=== PATIENT | female | born 1960 | race Caucasian/White ===

== ENCOUNTER 2016-09-17 18:56 | Inpatient (IN) | payer BC ==
[~2016-09-17] VITALS: Ht 170.2 cm; Wt 80.8 kg
--- NOTE | ~2016-09-17 | ECHO ---
Transthoracic Echocardiography Report (TTE) Demographics Patient Name TITO MOORE Date of Study 09/18/2016 Patient Number [id number] Visit Number [id number] Date of 1960 Room Number G6305 Accession Number [id number] Gender Female Age 55 year(s) Referring Guevara Sharma V Pediatric Oncology Nurse Billy Cunningham Physician RVT Physician Interpreting Yenny Corea MD Milk Route Deliverer Physician Supervising Ordering Physician Yenny Corea MD, MD/MLP Nurse Stress Pet Care Technician Conclusions Contractility Score Summary Normal Left Ventricular contractility was noted. Summary The estimated left ventricular ejection fraction is 60-65%. Mild concentric left ventricular hypertrophy. Mild mitral regurgitation by color Doppler. The aortic valve is mildly sclerotic. There is mild aortic regurgitation by color Doppler. Mild tricuspid regurgitation by color Doppler. There is moderate pulmonary hypertension. The pulmonary pressure (RVSP) is 45 mmHg. Possible trivial pericardial effusion. Procedure Type of Study TTE procedure:2D Echocardiogram. Procedure Date Date: 09/18/2016 Start: 08:39 AM Study Location: Inpatient Portable Technical Quality: Adequate visualization Indications:Chest pain. Appropriate Use Criteria: 9 Patient Status: Routine HR: 59 bpm BP: 156/80 mmHg Allergies - No known allergies. M-Mode/2D Measurements LV Diastolic Dimension: 4.34 cm LV Systolic Dimension: 2.9 cm LV Septum Diastolic: 1.52 cm LV PW Diastolic: 1.25 cm AO Root Dimension: 2.56 cm Cardiac Output: 3.55 l/min AV Cusp Separation: 1.9 cm RV Diastolic Dimension: 2.62 cm LVOT: 2.04 cm LVOT VTI: 18.4 cm RV Base: 2.44 cm LV Stroke volume: 60.11 ml RV Length: 5.95 cm TAPSE: 2.6 cm TDI-S': 13.5 cm/s Doppler Measurements AV Peak Velocity: 1.41 m/s MV Peak E-Wave: 0.91 m/s AV Peak Gradient: 7.95 mmHg MV Peak A-Wave: 0.53 m/s AV Mean Gradient: 4 mmHg MV E/A Ratio: 1.72 LVOT Peak Velocity: 0.84 m/s MV P1/2t: 57 msec AV P1/2t: 428 msec TR Gradient:35.05 mmHg PV Peak Velocity: 0.59 m/s Estimated RAP:10 mmHg PV Peak Gradient: 1.38 mmHg Estimated RVSP: 45 mmHg Estimated PASP: 45.05 mmHg E' Septal Velocity: 0.08 m/s A' Septal Velocity: 0.11 m/s E' Lateral Velocity: 0.1 m/s A' Lateral Velocity: 0.09 m/s Findings Left Ventricle Mild concentric left ventricular hypertrophy. Right Ventricle Normal right ventricle structure and function. Left Atrium Normal left atrial size. Right Atrium IVC measures 1.37 cm with inspiratory collapse. Mitral Valve Mild mitral regurgitation by color Doppler. Aortic Valve The aortic valve is mildly sclerotic. There is mild aortic regurgitation by color Doppler. Tricuspid Valve Mild tricuspid regurgitation by color Doppler. There is moderate pulmonary hypertension. The pulmonary pressure (RVSP) is 45 mmHg. Pulmonic Valve Normal pulmonic valve structure and function. Pericardial Effusion Possible trivial pericardial effusion. Miscellaneous Visualized portions of the aortic root and ascending aorta appear normal in size. Pleural Effusion No evidence of pleural effusion. Contractility Score LV regional wall motion:(0-Non visualized 1-Normal 2-Hypokinesis 3-Akinesis 4-Dyskinesis 5-Aneurysm) Signature dtt: Anmol Ramon (cardio) dtd: 09/18/16 0839 Physician Self Edit
--- NOTE | ~2016-09-17 | CATH ---
Cardiac Diagnostic Report Demographics Patient Name TERESA Lopez Gender Female Date of 1960 Age 55 year(s) Patient Number [id number] Date of Study 09/18/2016 Visit Number [id number] Room Number G6305 [place] [id number] Ht 170.18 cm Wt 80.1 kg Referring Primary Physician Physician Performing Yenny Corea MD Secondary Physician Physician Diagnostic Yenny Corea MD Assisting Physician Physician Interventional Physician Leather Worker Physician Findings and Conclusions Diagnostic Findings and Conclusion nonobstructive CAD Normal LV Function Diagnostic Recommendations Medical therapy Evaluation for noncardiac causes of chest pain Procedure Description The patient was brought to the diagnostic cardiac catheterization-EP laboratory in the fasting, non-sedated state. Informed consent was obtained in the written and verbal form after the risks and benefits were explained. The patient had no further questions and agreed to proceed. The planned puncture-incision site(s) were shaved and prepped with ChloraPrep and draped in the usual sterile manner. Conscious sedation, supplemental oxygen, and pain control medications were delivered by a registered nurse under physician guidance. Surface ECG rhythm, blood pressure measurement, and pulse oximetry were monitored throughout the procedure. Arterial access. The access site was infiltrated with lidocaine. The vessel was entered with the Seldinger technique. A sheath was advanced into the vessel and used for catheter placement. Selective left coronary angiography. A catheter was advanced into the left coronary vessel ostium under Fluoroscopic guidance. Contrast was injected by hand. Images were obtained in multiple projections. Selective right coronary angiography. A catheter was advanced into the right coronary vessel ostium under fluoroscopic guidance. Contrast was injected by hand. Images were obtained in multiple projections. Left heart catheterization with ventriculography. A catheter was advanced across the aortic valve to the left ventricle under fluoroscopic guidance. Resting hemodynamics were obtained. With the catheter at the left ventricular apex, contrast was injected. Images were obtained in [place] projections. Post-ventriculography LV pressure was obtained. The catheter was gradually withdrawn into the aorta with continuous pressure recording. Arterial artery hemostasis was achieved. The patient was transferred to a regular nursing floor via cart accompanied by a nurse. The patient left the laboratory in stable condition. Diagnostic Cath Status: Urgent Procedure Procedure Type Diagnostic procedure:Ventriculogram:, Left, Angiography:, Coronary Angios w/[facility] Indications: Chest pain. The procedure was explained in detail to the patient. Risks, complications and alternative treatments were reviewed. Written consent was obtained. Medications Reviewed with Patient prior to Procedure. Angiographic Findings Dominance: Right Cardiac Arteries and Lesion Findings LMCA: Large Normal LAD: Medium Normal Diag 1 Medium normal LCx: Nondominant Normal Om 1 Small RCA: Large normal PL medium normal PDA Medium normal Ramus: Large Normal Procedure Data Procedure Date Date: 09/18/2016Start: 12:35 PMEnd: 01:00 PM Entry Locations - Retrograde Percutaneous access was performed through the Right Femoral artery (Primary location). A 6 Fr sheath was inserted. Hemostasis was successfully obtained using Perclose ProGlide ([employer]). Closure Comments: Deployed by Shashank . Procedure Medications Order and Administration + + +-------+------+ !Time !Medication !Dosage !Route ! + + +-------+------09/18/2016 12:26 PM !Fentanyl !50 mcg !I.V. ! + + +-------+------09/18/2016 12:32 PM !Versed !1 mg !I.V. ! + + +-------+------09/18/2016 12:36 PM !Versed !1 mg !I.V. ! + + +-------+------+ Devices Used - A6 Fr. BS JL 4 Diag. Catheterwas used for:Left coronary angiography. - A6 Fr. BS JR 4 Diag. Catheterwas used for:Right coronary angiography. - A6 Fr. BS Angled Pigtail Diag. Catheterwas used for:LV Pressures. Contrast Material - Isovue 77291 ml Fluoroscopy Time: Diagnostic: 2:42 minutes. Total: 2:42 minutes. Fluoroscopy Dose: Diagnostic: 776 mGy. Total: 776 mGy. Estimated Blood Loss: 10 ml. Medical History Allergies - No known allergies. Risk Factors The patient risk factors include:hypertension, family history of premature CAD, last creatinine: 0.6 mg/dl, creatinine clearance: 133.96 ml/min and former tobacco use. Admission Data Admission Date: 09/17/2016 Admission Time: 09:34 PM Admit Source: Emergency department Insurance Payors: Private health insurance. Admission Medications + +------+------+ + + + + !Medication !Dosage!Times !Last !Last !Administered !Comments ! ! ! !Per !Delivery !Delivery ! ! ! ! ! !Day !Date !Time ! ! ! + +------+------+ + + + + !Beta ! ! ! ! !Yes ! ! !Jh ! ! ! ! ! ! ! !(any) ! ! ! ! ! ! ! + +------+------+ + + + + Clinical Evaluation Leading to Procedure - The patient's CAD presentation was assessed as: Stable angina. - The patient's anginal syndrome during the past two weeks was assessed as: Class IV according to the [place] Cardiovascular [employer] Classification System (CCS). Anti-anginal medications were prescribed during the past two weeks. The medication is: Beta Blockers. VA LV function assessed as:Normal. Ejection Fraction - Method: LV gram. EF%: 65. Hemodynamics Condition: Rest O2 Consumption: Estimated: 201.77Heart Rate: 93 bpm Pressures (mmHg) +-----+ + !Site !Pressure ! +-----+ + !AO !129/67 (91) ! +-----+ + !LV !135/3 ,16 ! +-----+ + !LV !133/1 ,15 ! +-----+ + !LV !130/3 ,16 ! +-----+ + !LV !132/3 ,16 ! +-----+ + !AO !133/66 (96) ! +-----+ + !LV !132/2 ,15 ! +-----+ + Valve Gradients and Areas + +---------+---------+---------+ +---------+ + !Valve !Peak !Mean !Area !Index !Flow !Source ! + +---------+---------+---------+ +---------+ + !Aortic !0 !0 ! ! ! ! ! + +---------+---------+---------+ +---------+ + !Aortic !0 !0 ! ! ! ! ! + +---------+---------+---------+ +---------+ + Shunts Oxygen Values O2 Capacity 201.28 O2 Consumption 201.77 Discharge Data Discharge Date: 09/20/2016 Hospital Status: Inpatient Signatures dtt: Anmol Ramon (cardio) dtd: 09/18/16 1235 Physician Self Edit
--- NOTE | ~2016-09-17 | OR ---
PATIENT'S NAME: TITO MOORE [facility] AGE: 55 Y [address] ROOM: [address] [address] LOCATION: GPCU ADMIT DATE: 09/17/2016 OR/Procedure Report DISCHARGE DATE: FAMILY PHYSICIAN: PHYSICIAN, UNKNOWN ATTENDING PHYSICIAN: GRISELDA DON V SURGEON: Efrain Ayers MD MEDICAL ASSISTANT PER DIEM: Lb Larson PA-C DATE OF PROCEDURE: 09/19/2016 PREOPERATIVE DIAGNOSIS: Cholelithiasis with cholecystitis. POSTOPERATIVE DIAGNOSIS: Cholelithiasis with acute cholecystitis. PROCEDURE PERFORMED: Laparoscopic cholecystectomy. ANESTHESIA: General endotracheal. ESTIMATED BLOOD LOSS: Less than 10 mL. SPECIMENS: Gallbladder and stones. REASON FOR PROCEDURE: The patient is a 55-year-old female, who was recently admitted for midepigastric pain. An ultrasound showed cholelithiasis with evidence of cholecystitis. Her common bile duct was normal in size, and her liver function tests were normal. She elected to proceed with cholecystectomy. FINDINGS: The patient had a markedly distended gallbladder with considerable gallbladder wall thickening and pericholecystic edema. PROCEDURE IN DETAIL: The patient was taken to the operating suite and placed in the supine position. After general endotracheal anesthesia was obtained, the abdomen was prepped with ChloraPrep and sterilely draped. Marcaine was infiltrated into the incision sites. A 2-cm transverse infraumbilical incision was made. The fascia was grasped and elevated, and a Veress needle was used to obtain a pneumoperitoneum. An 11-mm trocar was then passed across the abdominal wall. Three 5-mm subcostal trocars were all placed under direct visualization. The gallbladder was noted to be quite tense and markedly distended. We were unable to grasp it initially. We aspirated a 60 mL syringe of a fairly clear thick fluid from the gallbladder consistent with an obstructed cystic duct. We were then able to grasp the fundus and elevated. A second grasper was placed on the infundibulum. We then began the dissection along the gallbladder wall. The gallbladder wall was quite thickened and inflamed. We were able to expose the cystic artery and staple and divide this without difficulty. We then skeletonized the cystic duct. It was just PATIENT'S NAME: TITO MOORE [facility] AGE: 55 Y [address] ROOM: [address] [place], [place] [address] [facility] ADMIT DATE: 09/17/2016 OR/Procedure Report DISCHARGE DATE: FAMILY PHYSICIAN: PHYSICIAN, UNKNOWN ATTENDING PHYSICIAN: GRISELDA DON V slightly enlarged, but the clips did fit across it if just barely. The cystic duct was stapled multiple times proximally and once distally. The cystic duct was then divided. The gallbladder was then mobilized free of the liver bed using cautery. Once fully mobilized, the gallbladder was placed in an endo retrieval bag and brought out through the umbilicus. We did have to extend the skin incision at the umbilicus as well as stretch the fascial opening significantly to allow removal of this markedly inflamed gallbladder. Right upper quadrant was unremarkable. The pneumoperitoneum was evacuated. The trocars were withdrawn. The fascia at the umbilicus was closed with a figure- of-eight Vicryl suture. The skin incisions were closed with subcuticular Monocryl. Benzoin, Steri-Strips, and gauze dressings were applied. POST-PROCEDURE PLAN: The patient was sent to recovery and back to the floor. We will advance her diet as tolerated. She will receive pain medicines as necessary. MD ELIO GRAY/yaakovl /[id number] d: 09/19/16 1842 t: 09/28/16 0944, OPERATIVE SUMMARY
--- NOTE | ~2016-09-17 | DS ---
PATIENT'S NAME: TITO CONNELL [facility] AGE: 55 Y [address] ROOM: [place] [address] LOCATION: GPCU ADMIT DATE: 09/17/2016 Discharge Summary DISCHARGE DATE: 09/20/2016 FAMILY PHYSICIAN: Physician, Unknown ATTENDING PHYSICIAN: Zachary Waterman V PRINCIPAL DISCHARGE DIAGNOSIS: Acute cholecystitis with cholelithiasis. SECONDARY DIAGNOSES: 1. Abdominal pain with nausea and vomiting. 2. Moderate pulmonary hypertension. CONSULTATIONS: 1. Cardiology, Dr. Ramon. 2. Gastroenterology, Dr. Glenn Hay. 3. General Surgery, Dr. Ayers. PROCEDURES: 1. Cardiac catheterization on 09/18/2016, this was negative. 2. Echocardiogram on 04/21/2016, showed estimated left ventricular ejection fraction 60 to 65%, mild concentric left ventricular hypertrophy, mild mitral regurgitation, moderate pulmonary hypertension, right ventricular systolic pressure is 45 mmHg. 3. Laparoscopic cholecystectomy on 09/19. RADIOGRAPH STUDIES: Ultrasounds showed cholelithiasis with gallbladder wall thickening and surrounding fluid. BRIEF HISTORY: Ms Connell is a 55-year-old female who developed acute pain with severe nausea which lasted more than 12 hours prior to her presentation to the emergency room. This was after eating tacos. She was found to have acute cholecystitis with cholelithiasis. The patient was somewhat complicated by troponin elevation and the maximum around was 0.26. As a result, she had an echocardiogram and was evaluated by Yenny. She was taken to candlemaking laborer with no significant coronary artery disease is noted. She was taken for laparoscopic cholecystectomy yesterday morning and did very well. Postoperatively, she was able to eat yesterday evening. Today, she has been passing gas, had a bowel movement and feels very well, she is ready to go home. Because of the appearance of the gallbladder intraoperatively, it was felt that she needed to stay on IV antibiotics until today. Her Zosyn was discontinued this morning. She is afebrile, temperature currently 98.6, pulse 77, respirations 16. The patient agrees with plan to discharge to home. PATIENT'S NAME: TITO CONNELL [facility] AGE: 55 Y [address] ROOM: [place] [address] LOCATION: GPCU ADMIT DATE: 09/17/2016 Discharge Summary DISCHARGE DATE: 09/20/2016 FAMILY PHYSICIAN: Physician, Unknown ATTENDING PHYSICIAN: Zachary Waterman V INSTRUCTIONS AT DISCHARGE: Recommending a low-fat diet, but no particular restrictions. Activity as tolerated. Follow up with Dr. Ayers in 1-2 weeks. I am going to also recommend that she see a mechanical systems engineer due to the diagnosis of pulmonary hypertension on the echo. She has established care with a PCP within the next week or so. MEDICATIONS AT THE TIME OF DISCHARGE: [place] 5/325 as needed. However I think that she could control her pain which is negligible at this point with NSAIDs. CONDITION ON DISCHARGE: Excellent. She has been seen by the surgeons and given ronald ascencio discharge instruction. Less than 30 minutes was spent. VITOR JONES MD LM/camilla /[id number] d: 09/21/16 1200 t: 09/25/16 1224, DISCHARGE SUMMARY
--- NOTE | ~2016-09-17 | ER ---
PATIENT'S NAME: TITO MOORE [facility] AGE: 55 Y [address] ROOM: [place] [address] LOCATION: GPCU ADMIT DATE: 09/17/2016 ER/Outpatient Report DISCHARGE DATE: FAMILY PHYSICIAN: PHYSICIAN, UNKNOWN ATTENDING PHYSICIAN: GRISELDA DON V CHIEF COMPLAINT: Nausea, vomiting, and upper stomach pain. HISTORY OF PRESENT ILLNESS: The patient states that since 3:00 a.m. this morning, she has had vomiting. It has been near constant. She has been unable to keep anything down throughout the day. She is now bringing up yellow green bile. She has some cramping sensation associated with this. This woke her up out of her sleep. She has a remote smoking history. She has extensive family history of heart disease in the mid 60s in her father and grandfather. She denies any significant other medical conditions. She has not been able to try to take anything because she cannot keep it down. PAST MEDICAL HISTORY: Documented on the record and reviewed by me. SOCIAL HISTORY: Documented on the record and reviewed by me. MEDICATIONS: Documented on the record and reviewed by me. ALLERGIES: DOCUMENTED ON THE RECORD AND REVIEWED BY ME. REVIEW OF SYSTEMS: All systems reviewed and negative except as noted in the HPI. PHYSICAL EXAMINATION: VITAL SIGNS: Blood pressure is 136/82, pulse is 78, respiratory rate is 22, temperature 98.2, and SpO2 is 99% on room air. Pain is rated 6/10. GENERAL: An age-appropriate female, no obvious distress, in discomfort, vomiting on the exam table. NEUROLOGIC: Awake and alert. GCS is 15. No focal deficits. No asymmetry. HEENT: Normocephalic, atraumatic. Eyes are PERRL. Oropharynx is clear. NECK: Supple. Trachea is midline. CHEST: Heart has regular rate and rhythm with no murmurs. LUNGS: Clear to auscultation bilateral. ABDOMEN: Notable for epigastric discomfort. Bowel sounds are present. No PATIENT'S NAME: TITO MOORE [facility] AGE: 55 Y [address] ROOM: [place] [address] LOCATION: GPCU ADMIT DATE: 09/17/2016 ER/Outpatient Report DISCHARGE DATE: FAMILY PHYSICIAN: PHYSICIAN, UNKNOWN ATTENDING PHYSICIAN: GRISELDA DON V rebound, guarding, or masses. BACK: Normal to inspection and palpation. EXTREMITIES: Warm and well perfused except for the fingers and toes. They are cyanotic and pallorous. They are also cool. Brisk capillary refill otherwise. SKIN: Intact except as noted above. LABORATORY DATA AND X-RAYS: Chest x-ray is unremarkable per my review. Abdominal films do not reveal any findings consistent with perforation or other intraabdominal process. Urinalysis: 100 leukocytes, no bacteria, 5 to 10 wbc's. CPK is 139, CK-MB is 2.9, troponin I 0.255. White count is 13.3, 11.1 neutrophils; hemoglobin 14.8; platelets of 328. Lactate is 2.0. CMS with no electrolyte abnormalities. Glucose 109. Renal function is normal. No abnormalities of LFTs. Amylase and lipase are 88 and 110 respectively. Procalcitonin is undetectable. EKG does have some baseline artifact. Heart rate is approximately 70, appears to be sinus rhythm with otherwise normal intervals and axis. Fine detail is obscured; however, I do not see any obvious ischemia changes. There does appear to be inversion of the T-waves inferiorly. IMPRESSION: 1. Intractable nausea and vomiting. 2. Possible vpy-PD-synrzagpt myocardial infarction versus stress-related troponin elevation. EMERGENCY DEPARTMENT COURSE: The patient was seen and evaluated as above. I considered atypical presentation of ACS. EKGs are basically normal other than the slight inferior T-wave abnormality. Troponin is elevated with no other elevation of inflammatory markers. Nitroglycerin was started, this did not make much difference. GI cocktail also did not make much improvement. The overall presentation is very concerning. I discussed the case with Dr. Don, who will admit her to the hospital. She will trend her troponins. Dr. Ramon was made aware of the patient. She is not a candidate for catheterization immediately. The patient was able to have symptom control while we were talking with her other than some mild symptom outbreaks. However, any time we would leave the room, the symptoms appear to worsen acutely. Ultimately, the nitroglycerin was stopped per Dr. Don. She will be admitted to his service for further evaluation and treatment. PATIENT'S NAME: DESEAN MOOREMAYLATISHA Lopez [facility] AGE: 55 Y [address] ROOM: [address] [address] LOCATION: [facility] ADMIT DATE: 09/17/2016 ER/Outpatient Report DISCHARGE DATE: FAMILY PHYSICIAN: PHYSICIAN, JV ATTENDING PHYSICIAN: GRISELDA DON V MD JONY CANTU/camilla /[id number] d: 09/18/16 0840 t: 09/19/16 1253, OUTPATIENT REPORT
--- NOTE | ~2016-09-17 | CON ---
PATIENT'S NAME: BALJIT MOORE [facility] AGE: 55 Y [address] ROOM: [place] [address] LOCATION: GPCU ADMIT DATE: 09/17/2016 Consultation DISCHARGE DATE: FAMILY PHYSICIAN: PHYSICIAN, UNKNOWN ATTENDING PHYSICIAN: GRISELDA DON V REFERRING PHYSICIAN: Glenn Hay MD REFERRING PHYSICIAN: Griselda Don MD REASON FOR CONSULT: Elevated cardiac enzymes. HISTORY OF PRESENT ILLNESS: This is a 55-year-old female who presented to the emergency room with complaints of abdominal pain, dry heaves and sharp epigastric discomfort. She had had it most of the day and had irretractable vomiting. She presented to the emergency room, received a GI cocktail, nitroglycerin, Protonix and MS without any relief. She had an EKG showing a regular sinus rhythm and troponin was found to be slightly elevated at 0.255. Her amylase and lipase were noted to be normal. Therefore, she was admitted for non-Q-wave myocardial infarction and Cardiology was consulted. Baljit denies complaints of exertional chest heaviness or tightness. She has not had problems with exertional shortness of breath, orthopnea, PND or pedal edema. There is no report of palpitations, lightheadedness, dizziness, presyncope or syncopal episodes. She has noted increased problems with "heartburn" and takes up to four times a day. She denies any excessive use of NSAID therapy. PAST MEDICAL HISTORY: As per HPI. PAST SURGICAL HISTORY: She has had two C sections. SOCIAL HISTORY: She is . She has a very remote history of smoking in her 20s. She smoked for two years less than a pack of cigarettes a day, quit in 1981. She rarely drinks alcohol. FAMILY HISTORY: Positive for coronary artery disease, father having an TX in his 60s and followed by a CABG. Grandfather in his mid 60s of an TX. Her grandmother had diabetes mellitus and her mother had some thyroid problems. REVIEW OF SYSTEMS: HEAD: No history of headaches. PATIENT'S NAME: BALJIT MOORE [facility] AGE: 55 Y [address] ROOM: [address] [address] LOCATION: GPCU ADMIT DATE: 09/17/2016 Consultation DISCHARGE DATE: FAMILY PHYSICIAN: PHYSICIAN, UNKNOWN ATTENDING PHYSICIAN: GRISELDA DON V EYES: She wears corrective lenses. EARS: No problems with hearing. NOSE: No epistaxis or rhinorrhea. MOUTH: No gingival bleeding. THROAT: Denies sore throat, or hoarseness. She does have some problems with swallowing and has had increased the amount of water that she drinks when she does when she is eating. PULMONARY: No history of cough or hemoptysis. No history of pulmonary embolus. GASTROINTESTINAL: Per HPI. She does seem to have some intolerance with eating cheese. GENITOURINARY: Negative for urinary frequency or urgency. No dribbling or incontinence has been noted. No burning with urination. MUSCULOSKELETAL: Sometimes she has generalized arthritic discomfort. PSYCHIATRIC: No history of depression or anxiety. PHYSICAL EXAMINATION: VITAL SIGNS: She is 5 feet and 7 inches, her weight is 176 pounds, BMI is 27.6. Blood pressure is 168/77, heart rate 66, temperature is 98.6. SKIN: Warm, dry, and pink. HEENT: Pupils equal, round, and react briskly to light. EOMs are intact. NECK: Soft and supple. No lymphadenopathy. No thyromegaly. JVD is flat. LUNGS: Sounds are clear, with good symmetrical chest rise without wheezes, rales, or rhonchi. ABDOMEN: Soft. Bowel sounds are present. No tenderness was elicited. EXTREMITIES: No peripheral edema. No clubbing. No cyanosis. Pulses are 2+/4. PSYCHIATRIC: She is pleasant and her mood is stable. LABORATORY DATA: Troponin I is 0.255 x2, CPK 139-186. CK-MB was 2.9-3.2. UA was unremarkable. Lipid profile showed a cholesterol of 170, triglycerides 120, HDL was 43, LDL was 103. Hemoglobin A1c was 5.9. Chem panel, BUN was 11, creatinine 0.7, sodium 141, potassium was 3.9, magnesium was 1.8. White count was 13.3, hemoglobin 14.8, hematocrit 42.8, platelets are 328. ASSESSMENT AND PLAN: Elevated cardiac enzymes, possible non ST-elevation myocardial infarction. She is currently on heparin. Dr. Ramon has recommended that she undergo a left heart catheterization. Risks and benefits have been explained to her and she is in agreement and willing to proceed with that heart cath. The assessment and plan, history of present illness, and physical exam are per Dr. Ramon. Further recommendations will be forthcoming as information becomes available. PATIENT'S NAME: BALJIT MOORE [facility] AGE: 55 Y [address] ROOM: [place] [address] LOCATION: [facility] ADMIT DATE: 09/17/2016 Consultation DISCHARGE DATE: FAMILY PHYSICIAN: PHYSICIAN, UNKNOWN ATTENDING PHYSICIAN: GRISELDA DON V EMILIE DANIELLE APRN FOR MD DILLAN ASHLEY/yaakovl /[id number] d: 09/19/161951 t: 09/22/16 0953, CONSULTATION REPORT
--- NOTE | ~2016-09-17 | CON ---
PATIENT'S NAME: TITO MOORE [facility] AGE: 55 Y [address] ROOM: [address] [place], [place] [address] LOCATION: GPCU ADMIT DATE: 09/17/2016 Consultation DISCHARGE DATE: FAMILY PHYSICIAN: PHYSICIAN, UNKNOWN ATTENDING PHYSICIAN: GRISELDA DON V DATE OF CONSULTATION: 09/18/2016 REFERRING PHYSICIAN: Isai Scales MD REASON FOR CONSULTATION: Mid-epigastric pain, nausea and vomiting. HISTORY OF PRESENT ILLNESS: This is a very pleasant 55-year-old female, who denies any significant past medical history. The patient states that she ingested [employer] around 1900 hours on 09/16/2016. Approximately at 3:00 in the morning, she woke up with significant nausea subsequently with "bilious emesis" for several hours. The patient's did eat the same meal, though denies any development of the same symptoms. She also states at this time she began having associated mid- epigastric discomfort that did not relieve. She presented to the emergency room, where an EKG was unremarkable as well as cardiac enzymes within normal limits. She was given a GI cocktail as well as nitroglycerin without any relief of symptoms. The patient has stated that over the past 6 months she has noticed an increased intensity and frequency of "acid reflux and heartburn." She does state that she takes approximately 3 to 4 Tums per day that seems to relieve the symptoms. She denies any history of upper endoscopy or colonoscopy. She also complains of some mild dysphagia. She does state that this is intermittent with significant intensity of symptoms, specifically with string cheese. She does state that she has to drink more liquids with her meals. She denies any odynophagia as well as regurgitation for clearance of food. For trending of the patient's cardiac enzymes, they have trended upward as the patient is planning to go forth with heart catheterization today per Dr. Anmol Ramon. The patient denies any associated fever or chills or weight loss. The patient continues to complain of some mild mid-epigastric discomfort. PAST MEDICAL HISTORY: Questionable Raynaud's. SOCIAL HISTORY: The patient was a brief smoker in her 20s. She is employed at a daycare. Denies any ongoing toxic habits. FAMILY HISTORY: The patient's father had coronary artery disease in his 60s. Denies any known PATIENT'S NAME: TITO MOORE [facility] AGE: 55 Y [address] ROOM: [id number] [place], [place] [address] LOCATION: GPCU ADMIT DATE: 09/17/2016 Consultation DISCHARGE DATE: FAMILY PHYSICIAN: PHYSICIAN, UNKNOWN ATTENDING PHYSICIAN: GRISELDA DON V gastrointestinal diseases or cancers. ALLERGIES: NO KNOWN MEDICATION ALLERGIES. CURRENT MEDICATIONS: Please refer to the medication administration record. REVIEW OF SYSTEMS: An all-point review of systems was completed, all were negative except for those identified in the history of present illness. PHYSICAL EXAMINATION: GENERAL: A very pleasant 55-year-old female, lying in bed, who appears to be in no acute distress. VITAL SIGNS: Temperature 97.7, pulse of 58, respirations of 16, blood pressure 156/80, and oxygen saturation is 98% on room air. SKIN: [place], warm, dry. No jaundice. HEENT: Head is normocephalic and atraumatic. Pupils are equal, round, and reactive to light. Sclerae are clear, nonicteric. Oral mucosa is pink and moist. No thyromegaly. NECK: Soft and supple. CARDIOVASCULAR: Regular. Normal S1, S2. RESPIRATORY: Respirations even and unlabored. LUNGS: Clear to auscultation. ABDOMEN: Soft, round, mildly tender in her mid-epigastric area as well as left and right upper quadrants. Bowel sounds positive x4 quadrants. MUSCULOSKELETAL: No muscle weakness or atrophy. EXTREMITIES: No clubbing, cyanosis, or edema. NEUROLOGIC: Grossly nonfocal. LABS AND DIAGNOSTICS: Lactate on admission was 2.0. CPK was 242 with the last check with troponin I increased to 0.268 from an initial of 0.255. White blood cell count of 13.3, hemoglobin of 14.8, hematocrit of 42.8, platelets of 328. Glucose 111, BUN of 9, creatinine 0.6, sodium 140, potassium of 3.7, chloride 107, CO2 of 24, albumin of 3.5, AST of 17, ALT of 20, alkaline phosphatase of 79, total bilirubin 0.5, phosphorus of 3.1, magnesium of 1.8. Amylase on admission was 88, lipase was 110. Current abdominal ultrasound is pending at this time. The patient also will undergo echocardiogram today and heart catheterization. ASSESSMENT AND PLAN: Again, this is a very pleasant 55-year-old female, who was admitted with mid- epigastric discomfort, nausea and vomiting. The patient does have a history of stated "heartburn" with increasing intensity and frequency over the past 6 PATIENT'S NAME: TITO MOORE [facility] AGE: 55 Y [address] ROOM: [place] [address] [facility] ADMIT DATE: 09/17/2016 Consultation DISCHARGE DATE: FAMILY PHYSICIAN: PHYSICIAN, UNKNOWN ATTENDING PHYSICIAN: GRISELDA DON. The patient's cardiac enzymes have trended upward as there is plan for the patient to undergo an echocardiogram as well as a heart catheterization today. After clearance per Cardiology, a possible upper endoscopy and/or abdominal ultrasound may be warranted for further evaluation. This was discussed in depth with the patient as we will await recommendations and results from the patient's echocardiogram and cardiac catheterization. Thank you for this consult. POLINA WILKINS APRN FOR ISAI SCALES MD MMF/modl /[id number] d: 09/18/16 0950 t: 09/21/16 1643, CONSULTATION REPORT
--- NOTE | ~2016-09-17 | HP ---
PATIENT'S NAME: TITO MOORE [facility] AGE: 55 Y [address] ROOM: [place] [address] [facility] ADMIT DATE: 09/17/2016 History & Physical DISCHARGE DATE: FAMILY PHYSICIAN: PHYSICIAN, UNKNOWN ATTENDING PHYSICIAN: GRISELDA DON V DATE OF SERVICE: CHIEF COMPLAINT: Abdominal pain, nausea, and vomiting. HISTORY OF PRESENT ILLNESS: The patient is a 55-year-old female who does not carry any diagnosed past medical history. She developed sudden onset epigastric pain which is colicky and accompanied by nausea and vomiting several hours after consuming tacos at [employer] yesterday. Her who is by the bedside had the same meal but did not develop the same symptoms. The symptoms continued in the course of the day and her vomit changed from biley to just dry retching. She does endorse some shortness of breath associated with these symptoms as well as radiation to her back, but she denies any palpitations, chest pain, neck pain, left extremity pain. In the ER, the patient was found to have a workup which was only remarkable for troponin of 0.2 with unremarkable EKG and remaining biochemical profile, including CPKs and CK-MB. She has received GI cocktail as well as nitroglycerin IV, neither of which has had any effect on her symptomatology. In discussing her recent health, the patient endorses "reflux" for which she has been taking large quantities of Tums. She does endorse very sparse use of NSAIDs and this does not appear to be sustained. On further review of systems, she does endorse increased dyspnea even walking up 12 to 13 steps in her house as well as night sweats and brief weight loss. It is unclear if the weight loss is intentional or not. REVIEW OF SYSTEMS: All systems have been reviewed and are negative aside for pertinent positives mentioned above. PAST MEDICAL HISTORY: The patient thinks she might have Raynaud's though that was never diagnosed. SOCIAL HISTORY: She was a brief smoker in her 20s. 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 She denies any toxic habits. PATIENT'S NAME: TITO MOORE [facility] AGE: 55 Y [address] ROOM: [place] [address] [facility] AD[facility] DATE: 09/17/2016 History & Physical DISCHARGE DATE: FAMILY PHYSICIAN: PHYSICIAN, UNKNOWN ATTENDING PHYSICIAN: GRISELDA DON V FAMILY HISTORY: Her father has had coronary artery disease in his 60s. Her mother or siblings do not have any coronary artery disease. CURRENT MEDICATIONS: Tums. PHYSICAL EXAMINATION: VITAL SIGNS: On my visit, her blood pressure is 147/78, heart rate is in the 60s, saturating 100% on room air, afebrile, and respirations 16. GENERAL: Appears as an obese, middle-aged female, intermittently in distress from what appears to be colicky abdominal pain associated with some dry retching. NEUROLOGICAL: Nonfocal. EYE: Pupils are equal and reactive to light. LYMPHATIC: No cervical lymphadenopathy. ENDOCRINE: No thyromegaly. LUNGS: Clear to auscultation. HEART: Rate is regular with no appreciable murmurs, gallops, or rubs. GI: There is epigastric tenderness as well as a questionable Bradford's sign, though the patient has diffuse abdominal tenderness. There are diminished bowel sounds in all quadrants. VASCULAR: 2+ pedal pulses. MUSCULOSKELETAL: Unremarkable. SKIN: Warm and dry. PSYCHIATRIC: Reveals a very pleasant lady in intermittent distress and preserved mood, cognition, and affect. DIAGNOSTIC DATA: EKG shows normal sinus rhythm at 69 beats per minute. Her chest x-ray shows poor inspiratory effort. Lab results are significant for unremarkable amylase and lipase. Lactate of 2.0. Troponin 0.255. White count is 13.3, no differential abnormalities. Procalcitonin less than 0.05. ASSESSMENT AND PLAN: This is a 55-year-old female who will be admitted with nausea, vomiting, and abdominal discomfort. The underlying etiology of these symptoms could either be gastrointestinal due to peptic ulcer disease/gastroesophageal reflux disease versus cardiac. At this point, the patient will not be started on heparin in case her presentation is due to peptic ulcer disease. We will admit her to Progressive Care Unit for observation. We will trend her cardiac enzymes. We will provide her with symptomatic support with GI cocktail, IV PPIs, and antiemetics. We will also trend her cardiac enzymes and get a repeat EKG to further define the underlying etiology of her symptoms. We will PATIENT'S NAME: TITO MOORE [facility] AGE: 55 Y [address] ROOM: [address] [address] LOCATION: [facility] ADMIT DATE: 09/17/2016 History & Physical DISCHARGE DATE: FAMILY PHYSICIAN: PHYSICIAN, UNKNOWN ATTENDING PHYSICIAN: GRISELDA DON V request a GI consultation in the morning and make the patient n.p.o., as I believe she may benefit from an EGD depending on how the cardiac enzymes trend in the course of the night. Review of systems positive for night sweats, weight loss, and shortness of breath. We will get an echocardiogram, and the patient will need to establish care with a primary care physician to further evaluate for weight loss and night sweats. Additional management will depend on clinical course. Time dedicated to this patient's encounter is 35 minutes. MD HOLLY MILLS/camilla /[id number] D: [id number] T: [id number] HISTORY & PHYSICAL
--- NOTE | ~2016-09-17 | CON ---
PATIENT'S NAME: TITO MOORE [facility] AGE: 55 Y [address] ROOM: [place] [id number] LOCATION: GPCU ADMIT DATE: 09/17/2016 Consultation DISCHARGE DATE: FAMILY PHYSICIAN: PHYSICIAN, UNKNOWN ATTENDING PHYSICIAN: GRISELDA DON V DATE OF CONSULTATION: 09/18/2016 REFERRING PHYSICIAN: Glenn Hay MD CHIEF COMPLAINT: Abdominal pain. HISTORY OF PRESENT ILLNESS: The patient is a 55-year-old female who started two days ago with a fairly abrupt onset of midepigastric pain. It did radiate into her back slightly. It was also associated with severe nausea and vomiting. The pain was severe enough, she came in the emergency room to be evaluated. She had cardiac enzymes as well as a heart catheterization. Her lab work showed normal liver function tests, but did show a mildly elevated white count of 13,300. Her amylase and lipase were also within normal limits. Abdominal x-rays were normal. The ultrasound of her abdomen showed cholelithiasis with gallbladder wall thickening and pericholecystic fluid. The common bile duct was 5 mm. She has not had any previous attacks similar to this, but has had trouble with considerable increasing heartburn recently. She has no history of liver disease, ulcers, or Crohn disease. On my arrival, the patient states the pain is very minimal at this point. The nausea is much improved. PAST MEDICAL HISTORY: No chronic health issues. MEDICATIONS: Her only medications on admission were p.r.n. Tylenol and ibuprofen. SOCIAL HISTORY: The patient is a nonsmoker. She works at daycare. She is . She denies alcohol abuse or illegal drug use. FAMILY HISTORY: Positive for some coronary artery disease. ALLERGIES: NO KNOWN DRUG ALLERGIES. REVIEW OF SYSTEMS: Complete review of systems is documented in the nursing assessment form, has PATIENT'S NAME: TITO MOORE [facility] AGE: 55 Y [address] ROOM: [address] [address] LOCATION: GPCU ADMIT DATE: 09/17/2016 Consultation DISCHARGE DATE: FAMILY PHYSICIAN: PHYSICIAN, UNKNOWN ATTENDING PHYSICIAN: GRISELDA DON V been reviewed with the patient. PHYSICAL EXAMINATION: GENERAL: The patient is a healthy well-nourished female, who appears appropriate for stated age. She is alert and oriented. She is in no obvious distress or discomfort. VITAL SIGNS: The patient is afebrile. Blood pressure 126/64, pulse 64, respirations 16, sats are 95% on room air. HEENT: Normocephalic, atraumatic. Pupils are equal. There is no scleral icterus. External ears, nose, and eyelids unremarkable. Oropharynx is clear without lesions or exudate. NECK: The trachea is midline. There are no masses. RESPIRATORY: Breathing is nonlabored. Lungs are clear to auscultation bilaterally without rales, rhonchi, or wheezing. HEART: Regular rate and rhythm. ABDOMEN: Soft. It is not distended. It is nontender. Seems like there is some fullness in the right upper quadrant, but she does not have any real discomfort associated with it. No obvious hernias. EXTREMITIES: No peripheral edema. No cyanosis or clubbing. No obvious deformities. She moves all 4 extremities well. ASSESSMENT: A 55-year-old female with cholelithiasis and evidence of cholecystitis. I discussed the diagnosis with her as well as the risks and benefits of surgery versus ongoing observation and antibiotics. PLAN: We will plan on proceeding with laparoscopic cholecystectomy in the morning. MD ELIO GRAY/camilla /[id number] d: 09/19/16 1857 t: 09/28/16 0947, CONSULTATION REPORT
[2016-09-17 19:21] LABS: BASOPHIL % 0.2 %; EOSINOPHIL % 0.1 %; HEMATOCRIT 42.8 % (33.0-46.0); HEMOGLOBIN 14.8 g/dL (10.0-15.0); IMMATURE GRANULOCYTE % 0.3 %; LYMPHOCYTE # 1.5 K/uL (0.8-4.0); LYMPHOCYTE % 11.2 %; MCH 28.1 pg (27.0-34.0); MCHC 34.6 gm/dL (32.0-36.5); MCV 81.2 fl (83.0-98.0); MONOCYTE # 0.6 K/uL (0.0-1.0); MONOCYTE % 4.8 %; MPV 10.4 fl (9.4-12.4); NEUTROPHIL # (ANC) 11.1 K/uL (1.8-7.8); NEUTROPHIL % 83.4 %; NRBC % 0 /100WBC (0-0.00); PLATELET COUNT 328 K/uL (150-450); RBC 5.27 M/uL (3.50-5.50); RDW-CV 13.5 % (11.9-14.6); WBC 13.3 K/uL (4.0-11.0)
[2016-09-17 19:41] LABS: ALBUMIN 3.7 gm/dL (3.5-5.0); ALK PHOS 85 IU/L (33-138); ALT 18 IU/L (12-78); ANION GAP 14.9 (10.0-19.0); AST 19 IU/L (10-40); BLOOD UREA NITROGEN 11 mg/dL (6-24); CALCIUM 9.4 mg/dL (8.5-10.5); CHLORIDE 107 mMol/L (96-110); CO2 23 mMol/L (22-32); CREATININE 0.7 mg/dL (0.5-1.1); POTASSIUM 3.9 mMol/L (3.7-5.1); SODIUM 141 mMol/L (135-145); TOTAL BILIRUBIN 0.5 mg/dL (0.0-1.5)
[2016-09-17 21:00] LABS: BILIRUBIN URINE NEGATIVE (NEGATIVE); BLOOD URINE NEGATIVE /UL (NEGATIVE); COLOR URINE YELLOW (YELLOW); GLUCOSE URINE NEGATIVE (NEGATIVE); KETONE URINE 50 mg/dL (NEGATIVE); LEUKOCYTES URINE 100 /UL (NEGATIVE); NITRITE URINE NEGATIVE (NEGATIVE); PROTEIN URINE NEGATIVE (NEGATIVE); TURBIDITY URINE CLEAR (CLEAR); UROBILINOGEN URINE NORMAL (NORMAL)
[2016-09-17 21:08] LABS: RBC URINE NEGATIVE #/HPF (NEGATIVE)
[2016-09-17 21:09] LABS: BACTERIA URINE NEGATIVE (NEGATIVE); MUCUS URINE 1+ (NEGATIVE)
[2016-09-17] MEDS ORDERED: ADVIL200 MG PO (22:25)
[2016-09-17] MEDS ORDERED: ALEVE220 MG PO (22:26)
[2016-09-18 08:12] LABS: ALBUMIN 3.5 gm/dL (3.5-5.0); ALK PHOS 79 IU/L (33-138); ALT 20 IU/L (12-78); ANION GAP 12.7 (10.0-19.0); AST 17 IU/L (10-40); BLOOD UREA NITROGEN 9 mg/dL (6-24); CALCIUM 8.6 mg/dL (8.5-10.5); CHLORIDE 107 mMol/L (96-110); CO2 24 mMol/L (22-32); CPK 242 IU/L (21-215); CREATININE 0.6 mg/dL (0.5-1.1); MAGNESIUM 1.8 mg/dL (1.8-2.6); PHOSPHORUS 3.1 mg/dL (2.5-4.9); POTASSIUM 3.7 mMol/L (3.7-5.1); SODIUM 140 mMol/L (135-145); TOTAL BILIRUBIN 0.5 mg/dL (0.0-1.5); TOTAL PROTEIN 7.3 g/dL (6.0-8.4)
[2016-09-20] MEDS ORDERED: NORCO 5-325 TA1 EACH PO (14:56)
== END 2016-09-20 15:30 | disposition disaster alternative care site (69) | DRG 419 ==
LOC: GMED 18:56 → GPCU 21:33
PROVIDERS: Emergency Medicine; ADMIT Internal Medicine
PROC: B2111ZZ Fluoroscopy of Multiple Coronary Arteries using Low Osmolar Contrast (ICD-10-PCS; principal; 2016-09-18)
PROC: 4A023N7 Measurement of Cardiac Sampling and Pressure, Left Heart, Percutaneous Approach (ICD-10-PCS; principal; 2016-09-18)
PROC: B2151ZZ Fluoroscopy of Left Heart using Low Osmolar Contrast (ICD-10-PCS; principal; 2016-09-18)
PROC: 0FT44ZZ Resection of Gallbladder, Percutaneous Endoscopic Approach (ICD-10-PCS; 2016-09-19)
DX: K80.00 Calculus of gallbladder with acute cholecystitis without obstruction (principal); I27.2 Other secondary pulmonary hypertension; R79.89 Other specified abnormal findings of blood chemistry; I34.0 Nonrheumatic mitral (valve) insufficiency; Z87.891 Personal history of nicotine dependence; Z82.49 Family history of ischemic heart disease and other diseases of the circulatory system
CPT/HCPCS: C1760; C1894; C9113; J1644; J2250; J2270; J2405; J2543; J2550; J2765; J3010; J7030; J7050

== ENCOUNTER → 2016-11-09 | Outpatient (CLI) | payer BC ==
[~2016-11-09] MED LIST: ADVIL200 MG PO; ALEVE220 MG PO; NORCO 5-325 TA1 EACH PO
--- NOTE | ~2016-11-09 | PUL ---
PATIENT'S NAME: TITO MOORE [facility] AGE: 55 Y [address] ROOM: [place] [address] LOCATION: [facility] ADMIT DATE: 11/09/2016 Pulmonary DISCHARGE DATE: FAMILY PHYSICIAN: Chely Wu APRN ATTENDING PHYSICIAN: MARTA VALADEZ NAME OF PROCEDURE: Pulmonary Function Test DATE OF PROCEDURE: November 09, 2016 TECH: GRZEGORZ Morgan REASON FOR EXAM: Shortness of breath PROCEDURES PERFORMED: Spirometry with bronchodilator assessment. Measurement of lung volumes. Measurement of maximum voluntary ventilation. Measurement of diffusion capacity. RESULTS: FVC was 2.07 L, 56% of predicted; FEV1 was 1.78 L, 62% of predicted. FEV1 by FVC was 79%. This data did not change significantly following administration of bronchodilator. FEF 25-75 was 2.59 L/second, 91% of predicted. Maximum voluntary ventilation was 109 L/minute, 114% of predicted. Diffusing capacity not adjusted for hemoglobin was 51%. Lung volumes measurement showed total lung capacity was 4.06 L, 76% of predicted. Residual volume was 1.87 L, 95% of predicted. Functional residual capacity was 2.15 L, 75% of predicted. Flow volume loop pattern is restrictive. PHYSICIAN INTERPRETATION: This data and the corresponding flow volume curves correspond to with mild ventilatory restriction with moderate gas transfer impairment. There was no significant bronchodilator response. MD ALEXANDRA MONROE/fernando /[id number] dtt: 11/17/16 1050 RORY MEENAKSHI dtd: 11/14/16 1528
== END | disposition disaster alternative care site (69) ==
LOC: GRAD 15:38
DX: I27.2 Other secondary pulmonary hypertension (principal); G47.33 Obstructive sleep apnea (adult) (pediatric); K44.9 Diaphragmatic hernia without obstruction or gangrene; R06.02 Shortness of breath; R09.02 Hypoxemia; R91.8 Other nonspecific abnormal finding of lung field